=== PATIENT | male | born 2000 | race Caucasian/White ===

== ENCOUNTER 2020-03-29 15:58 | Emergency (ER) | payer OTHER, SELFPAY ==
[2020-03-29 16:25] VITALS: BP 139/73; PULSE 53; RESP 16; TEMP 36.3; O2SAT 100
--- NOTE | 2020-03-29 16:38 | ED.WOUNDLAC ---
HPI - Wound/Laceration General Chief Complaint: Wound/Laceration Stated Complaint: Ingrown toenail Time Seen by Provider: 03/29/20 16:38 Source: patient and RN notes reviewed Mode of arrival: ambulatory Limitations: no limitations History of Present Illness HPI narrative: 20-year-old male who presents to [facility] care with complaints of 1 week duration of pain to his right mid lateral great toe nail bed. Patient has some swelling with red raised tissue noted to right lateral nail bed with some clear fluid drainage coming from this area. Patient states some pain with ambulation, no indention of nail bed into tissue.Patient states that he has been applying some antibiotic cream and applying band-aide to toe. Onset (ago): week(s) (1) Location: other Extremity Location: Right: foot (right great toe) Place: other Patient tetanus UTD: Yes Context: other (paronychia) Associated symptoms: pain Treatments prior to arrival: bandage and other (antibiotic ointment) Related Data Allergies Allergy/AdvReac Type Severity Reaction Status Date / Time No Known Allergies Allergy Verified 03/29/20 16:27 Review of Systems Review of Systems: Narrative: CONSTITUTIONAL: Denies fever, chills, or sweats. EYES: Denies visual changes, redness, or discharge. ENT: Denies rhinorrhea, congestion, sore throat, or otalgia. CARDIOVASCULAR: Denies chest pain, palpitations, or edema. RESPIRATORY: Denies cough or dyspnea. GASTROINTESTINAL: Denies abdominal pain, nausea, vomiting, or diarrhea. GENITOURINARY: Denies dysuria or hematuria. SKIN: Denies rash or itching.swelling red inflamed tissue to mid lateral aspect of right great toe with clear drainage. MUSCULOSKELETAL: Denies back pain, joint pain, or myalgia. NEUROLOGIC: Denies headache, numbness, or weakness. PSYCHIATRIC: Denies anxiety or depression. All systems reviewed & are unremarkable except as noted in HPI and below PMFSH Past Medical History Medical History (Updated 03/29/20 @ 18:00 by Nancy Mtz NP) No pertinent past medical history Surgical History Surgical History (Updated 03/29/20 @ 17:59 by Nancy Mtz NP) History of inguinal herniorrhaphy Family History Family History (Updated 03/29/20 @ 18:13 by Nancy Mtz NP) Father Acute myocardial infarction Social History Social History (Updated 03/29/20 @ 18:00 by Nancy Mtz NP) Smoking status: Never smoker Alcohol use details: social but rare Substance use: never Living arrangements: with family Occupation/Education: student Gender identity (if verbalized by the patient): Male Comments At time of signature, agree with nursing past medical, surgical, social and family history. There is no relevant family history pertinent to the presenting complaint Exam Narrative: Exam Narrative: GENERAL: Well-appearing, well-nourished, and in no acute distress. HEAD: Normocephalic, atraumatic. EYES: PERRLA and EOMI. ENT: Nares clear, no rhinorrhea or epistaxis. Mucous membranes moist. NECK: Supple.no lymphadenopathy CHEST: Clear to auscultation. No respiratory distress. HEART: Regular rate and rhythm. No murmur heard. Normal peripheral pulses. ABDOMEN: Soft, nontender, nondistended, normal active bowel sounds. EXTREMITIES: Normal range of motion. No edema. SKIN: Warm, dry, no rash.red swollen tissue to mid lateral region of right great toe nail bed, clear drainage noted. NEURO: No focal deficits. Alert and oriented x3. Course Vital Signs Vital signs: Vital Signs Temperature 36.3 C L 03/29/20 16:25 Pulse Rate 53 L 03/29/20 16:25 Respiratory Rate 16 03/29/20 16:25 Blood Pressure 139/73 03/29/20 16:25 Pulse Oximetry 100 03/29/20 16:25 Temperature 36.3 C L 03/29/20 16:25 Pulse Rate 53 L 03/29/20 16:25 Respiratory Rate 16 03/29/20 16:25 Blood Pressure 139/73 03/29/20 16:25 Pulse Oximetry 100 03/29/20 16:25 Procedures Abscess I/D right great toe: Date of In
== END 2020-03-29 16:56 | disposition home or self-care (01) ==
PROVIDERS: Emergency Provider Registered Nurse; PCP Pediatrics
DX: L03.031 Cellulitis of right toe (principal)
CPT/HCPCS: 10160; 99203; G0463

== ENCOUNTER 2021-05-10 10:02 | Outpatient (CLI) | payer OTHER, SELFPAY ==
--- NOTE | ~2021-05-10 | XR_ITS ---
EXAMINATION: XR chest 2V DATE: 05/10/2021 11:07 INDICATION: Shortness of breath. TECHNIQUE: Frontal and lateral views of the chest were obtained. COMPARISON: None. FINDINGS: The chest demonstrates clear lungs without pneumonia, pleural effusion, or pneumothorax. Th e heart size is normal. IMPRESSION: 1. No acute cardiopulmonary disease. Reviewed, dictated and finalized at location A.
--- NOTE | 2021-05-10 12:52 | WPDPFTINT ---
PFT Procedure Performed PFT Procedure Performed Spirometry with Pre/Post Bronchodilator Plethysmography (Lung Vol) Diffusing Cap (DLCO) Flow Vol Loop PFT Interpretation This is a pulmonary function test with pre and post-bronchodilator spirometry, plethysmography and diffusing capacity. The test was performed and results interpreted in accordance with the 2019 and 2005 ATS/ERS Task Force guidelines respectively using the Global Lung Function Initiative-2012 reference equations. Patient demonstrated good effort and cooperation. Reproducibility criteria were met. The quality of the pre bronchodilator spirometry maneuver was Grade A and post bronchodilator spirometry maneuver was Grade A. Findings: Spirometry: The contour the inspiratory and expiratory flow tracing are normal. The pre bronchodilator FVC is 5.69 L, 96% predicted. The pre bronchodilator FEV1 is 5.10 L, 102% predicted. The FEV1: FVC ratio was 90%. The post bronchodilator FVC is 5.65 L, representing 1% decrease. The post bronchodilator FEV1 is 5.44 L, representing a 7% increase. Plethysmography: The total lung capacity is 5.91 L, 81% predicted. The functional residual capacity is 2.52 L, 71% predicted. The residual volume is 0.20 L, 13% predicted. Diffusing capacity: The absolute diffusion capacity is 44.2, 116% predicted. The diffusing capacity corrected for alveolar volume is 5.66, 106% predicted. Impression: The spirometry is normal without evidence of an obstructive abnormality. There is no significant improvement after inhaling a single dose of albuterol. There is a decreased residual volume with a normal total lung capacity. This is an abnormal but nonspecific lung volume pattern. The diffusing capacity is normal. There are no prior studies for comparison
== END 2021-05-10 10:03 | disposition home or self-care (01) ==
LOC: ANHPFT 10:04
PROVIDERS: PCP Internal Medicine; Visit Provider Clinical Nurse Specialist
DX: R06.02 Shortness of breath (principal)
CPT/HCPCS: 71046; 94060; 94726; 94729